=== PATIENT | female | born 1970 | race Caucasian/White ===

== ENCOUNTER 2019-06-16 05:25 | Observation (INO) | payer OTHER ==
[2019-06-16] MEDS ORDERED: ASPIRIN 81 MG CHEWABLE TABLET ONE (06:16)
[2019-06-16] MEDS ORDERED: METHYLPREDNISOLONE 125 MG INJ ONE (06:16)
[2019-06-16] MEDS ORDERED: FAMOTIDINE 20 MG/2 ML VIAL IV ONE (06:17)
[2019-06-16] MEDS ORDERED: ACETAMINOPHEN 325 MG TABLET ONE (06:17)
[2019-06-16] MEDS ORDERED: DIPHENHYDRAMINE 50 MG/ML VIAL ONE (06:17)
[2019-06-16 06:23] LABS: Absolute Lymphocytes (CBC) 1.7 K/uL (0.7-4.9); Basophils % 0.8 % (0-1.3); Hematocrit 42.5 % (36.0-45.0); Lymphocytes % 15.3 % (15.3-44.8); MPV 8.6 fL (7.6-11.3); Protime INR 0.96; RBC Red Blood Cell Count 4.52 M/uL (3.86-4.86)
--- NOTE | 2019-06-16 06:32 | EDPHYS ---
Physician Documentation [facility] Name: Venice James Age: 49 yrs Sex: Female : 1970 Arrival Date: 06/16/2019 Time: 05:26 Bed 8 Private MD: ED Physician Shailesh Owens HPI: 06/16 05:56 This 49 yrs old Female presents to ER via Ambulatory with complaints of Chest jaqui Pain. 05:56 The patient or guardian reports chest pain that is located primarily in the substernal jaqui area, anterior chest wall, right. Onset: just prior to arrival, this morning. The pain radiates to right back. Associated signs and symptoms: The patient has no apparent associated signs or symptoms. The chest pain is described as a heaviness, sharp. Modifying factors: The symptoms are alleviated by rest, the symptoms are aggravated by deep breath, movement. Severity of pain: At its worst the pain was mild moderate in the emergency department the pain is unchanged. Historical: - Allergies: 05:39 No Known Allergies; jd3 - Home Meds: 05:39 None [Active]; jd3 - PMHx: 05:39 None; jd3 - PSHx: 05:39 breast implants; jd3 - Immunization history:: Adult Immunizations up to date. - Social history:: Smoking status: Patient/guardian denies using tobacco. - Ebola Screening: : Patient negative for fever greater than or equal to 101.5 degrees Fahrenheit, and additional compatible Ebola Virus Disease symptoms. - Family history:: not pertinent. ROS: 05:56 Constitutional: Negative for fever, chills, and weight loss, Eyes: Negative for injury, jaqui pain, redness, and discharge, ENT: Negative for injury, pain, and discharge, Neck: Negative for injury, pain, and swelling, Respiratory: Negative for shortness of breath, cough, wheezing, and pleuritic chest pain, Abdomen/GI: Negative for abdominal pain, nausea, vomiting, diarrhea, and constipation, Back: Negative for injury and pain, : Negative for injury, bleeding, discharge, and swelling, MS/Extremity: Negative for injury and deformity, Skin: Negative for injury, rash, and discoloration, Neuro: Negative for headache, weakness, numbness, tingling, and seizure, Psych: Negative for depression, anxiety, suicide ideation, homicidal ideation, and hallucinations, Allergy/Immunology: Negative for hives, rash, and allergies, Endocrine: Negative for neck swelling, polydipsia, polyuria, polyphagia, and marked weight changes, Hematologic/Lymphatic: Negative for swollen nodes, abnormal bleeding, and unusual bruising. 05:56 Cardiovascular: Positive for chest pain. Exam: 05:56 Constitutional: This is a well developed, well nourished patient who is awake, alert, jaqui and in no acute distress. Eyes: Pupils equal round and reactive to light, extra-ocular motions intact. Lids and lashes normal. Conjunctiva and sclera are non-icteric and not injected. Cornea within normal limits. Periorbital areas with no swelling, redness, or edema. ENT: Nares patent. No nasal discharge, no septal abnormalities noted. Tympanic membranes are normal and external auditory canals are clear. Oropharynx with no redness, swelling, or masses, exudates, or evidence of obstruction, uvula midline. Mucous membranes moist. Neck: Trachea midline, no thyromegaly or masses palpated, and no cervical lymphadenopathy. Supple, full range of motion without nuchal rigidity, or vertebral point tenderness. No Meningismus. Cardiovascular: Regular rate and rhythm with a normal S1 and S2. No gallops, murmurs, or rubs. Normal PMI, no JVD. No pulse deficits. Respiratory: Lungs have equal breath sounds bilaterally, clear to auscultation and percussion. No rales, rhonchi or wheezes noted. No increased work of breathing, no retractions or nasal flaring. Abdomen/GI: Soft, non-tender, with normal bowel sounds. No distension or tympany. No guarding or rebound. No evidence of tenderness throughout. Back: No spinal tenderness. No costovertebral tenderness. Full range of motion. Female : Normal external genitalia. Skin: Warm, dry with normal turgor. Normal color with no rashes, no lesions, and no evidence of cellulitis. MS/ Extremity: Pulses equal, no cyanosis. Neurovascular intact. Full, normal range of motion. Neuro: Awake and alert, GCS 15, oriented to person, place, time, and situation. Cranial nerves II-XII grossly intact. Motor strength 5/5 in all extremities. Sensory grossly intact. Cerebellar exam normal. Normal gait. Psych: Awake, alert, with orientation to person, place and time. Behavior, mood, and affect are within normal limits. 05:56 Chest/axilla: Inspection: normal, Palpation: tenderness, that is mild, that is moderate, of the anterior aspect of right upper chest and right breast. 05:56 Cardiovascular: Rate: normal, Rhythm: regular, Pulses: Pulses are 4+ in bilateral radial, brachial, femoral, popliteal, posterior tibial and and dorsalis pedis arteries.. Heart sounds: normal, JVD: is not appreciated. 07:26 Musculoskeletal/extremity: Exam is negative for Extremities: all appear grossly normal, jaqui with no appreciated pain with palpation, DVT Exam: No signs of deep vein thrombosis. no pain, no swelling, no tenderness, negative Homans' sign noted on exam, no appreciated bluish discoloration, no erythema, no increased warmth. Vital Signs: 05:39 BP 133 / 83; Pulse 73; Resp 16 S; Temp 98.0(TE); Pulse Ox 99% on R/A; Weight 63.5 kg jd3 (R); Height 5 ft. 5 in. (165.10 cm) (R); Pain 5/10; 07:15 BP 124 / 76; Pulse 70; Resp 15; Pulse Ox 100% on R/A; Pain 2/10; hb 08:30 BP 110 / 73; Pulse 73; Resp 14; Pulse Ox 99% on R/A; Pain 0/10; hb 09:11 BP 106 / 64; Pulse 71; Resp 16; Pulse Ox 100% on R/A; Pain 0/10; hb 05:39 Body Mass Index 23.30 (63.50 kg, 165.10 cm) jd3 MDM: 05:31 Patient medically screened. [facility] 05:56 Data reviewed: vital signs, nurses notes, lab test result(s), EKG, radiologic studies, [facility] CT scan, plain films. 06/16 05:55 Order name: Basic Metabolic Panel; Complete Time: 07:24 [facility] 06/16 05:55 Order name: CBC with Diff; Complete Time: 07:24 [facility] 06/16 05:55 Order name: LFT's; Complete Time: 07:24 [facility] 06/16 05:55 Order name: Magnesium; Complete Time: 07:24 [facility] 06/16 05:55 Order name: NT PRO-BNP; Complete Time: 07:24 [facility] 06/16 05:55 Order name: PT-INR; Complete Time: 07:24 [facility] 06/16 05:55 Order name: Troponin (emerg Dept Use Only); Complete Time: 07:24 [facility] 06/16 05:55 Order name: Lipase; Complete Time: 07:24 [facility] 06/16 05:56 Order name: Urine Culture [facility] 06/16 06:34 Order name: Urine Dipstick--Ancillary (enter results) [facility] 06/16 06:34 Order name: Urine --Ancillary (enter results) [facility] 06/16 07:53 Order name: Basic Metabolic Panel EDMS 06/16 07:53 Order name: Basic Metabolic Panel EDMS 06/16 07:53 Order name: CBC with Automated Diff EDMS 06/16 05:55 Order name: EKG; Complete Time: 05:57 [facility] 06/16 05:56 Order name: CT Aorta for Dissection [facility] 06/16 07:53 Order name: CONS Physician Consult EDMT 06/16 07:53 Order name: Echo with Doppler EDMS 06/16 07:53 Order name: CBC with Automated Diff EDMS 06/16 07:53 Order name: Lipid Profile EDMS 06/16 07:53 Order name: Lipid Profile EDMS 06/16 07:53 Order name: Troponin I EDMS 06/16 07:53 Order name: Troponin I EDMS 06/16 07:53 Order name: Troponin I EDMS 06/16 05:55 Order name: Cardiac monitoring; Complete Time: 05:56 [facility] 06/16 05:55 Order name: EKG - Nurse/Tech; Complete Time: 05:56 [facility] 06/16 05:55 Order name: IV Saline Lock; Complete Time: 06:14 [facility] 06/16 05:55 Order name: Labs collected and sent; Complete Time: 06:14 [facility] 06/16 05:55 Order name: O2 Per Protocol; Complete Time: 05:56 [facility] 06/16 05:55 Order name: O2 Sat Monitoring; Complete Time: 05:56 [facility] 06/16 05:56 Order name: Urine Dipstick-Ancillary (obtain specimen); Complete Time: 06:31 [facility] 06/16 05:56 Order name: Urine Test (obtain specimen); Complete Time: 06:31 [facility] 06/16 07:53 Order name: EKG Electrocardiogram EDMT 06/16 07:53 Order name: EKG Electrocardiogram EDMS 06/16 07:56 Order name: Heart Healthy EDMT Administered Medications: 06:31 Drug: Aspirin 162 mg Route: PO; jd3 06:31 Drug: Benadryl 25 mg Route: IVP; Site: right antecubital; jd3 06:31 Drug: Pepcid 40 mg Route: IVP; Site: right antecubital; jd3 06:31 Drug: SOLU-Medrol 125 mg Route: IVP; Site: right antecubital; jd3 06:32 Drug: Tylenol 650 mg Route: PO; jd3 Disposition: 06/16/19 06:32 Hospitalization ordered by Maria C Batista for Observation. Preliminary diagnosis are Chest pain, unspecified - celiac artery stenosis, Dyspnea, Urticaria, Other ovarian cysts - right 3.9 cm with septation. - Bed requested for Telemetry/MedSurg (observation). - Status is Observation. eb - Condition is Stable. - Problem is new. - Symptoms have improved. UTI on Admission? No Signatures: Dispatcher [employer] [facility] Shailesh Owens MD MD cha Davies, Jonathon RN RN jAlyson Romero Corrections: (The following items were deleted from the chart) 07:20 05:57 Chest Single View+RAD.RAD.BRZ ordered. [facility] EDMT 07:56 07:53 Heart Healthy ordered. [facility] EDMT 08:05 06:32 Hospitalization Ordered by Maria C Batista MD for Observation. Preliminary jaqui diagnosis is Chest pain, unspecified; Dyspnea; Urticaria. Bed requested for Telemetry/MedSurg (observation). Status is Observation. Condition is Stable. Problem is new. Symptoms have improved. UTI on Admission? No. jaqui 09:02 08:05 06/16/2019 06:32 Hospitalization Ordered by Maria C Batista MD for Observation. eb Preliminary diagnosis is Chest pain, unspecified - celiac artery stenosis; Dyspnea; Urticaria; Other ovarian cysts - right 3.9 cm with septation. Bed requested for Telemetry/MedSurg (observation). Status is Observation. Condition is Stable. Problem is new. Symptoms have improved. UTI on Admission? No. jaqui 09:35 09:02 06/16/2019 06:32 Hospitalization Ordered by Maria C Baitsta MD for Observation. eb Preliminary diagnosis is Chest pain, unspecified - celiac artery stenosis; Dyspnea; Urticaria; Other ovarian cysts - right 3.9 cm with septation. Bed requested for Telemetry/MedSurg (observation). Status is Observation. Condition is Stable. Problem is new. Symptoms have improved. UTI on Admission? No. eb
--- NOTE | 2019-06-16 06:32 | ER ---
Nurse's Notes [facility] Name: Venice James Age: 49 yrs Sex: Female : 1970 Arrival Date: 06/16/2019 Time: 05:26 Bed 8 Private MD: Diagnosis: Chest pain, unspecified-celiac artery stenosis;Dyspnea;Urticaria;Other ovarian cysts-right 3.9 cm with septation Presentation: 06/16 05:36 Presenting complaint: Patient states: "I am having chest pain that started about an jd3 hour ago. it happens off an on for a month now. I have seen my primary doctor and she had me get an X-ray and labs done. I was also sent larry with acid reflux medication, but it isn't helping and they haven't called back about the results.". Transition of care: patient was not received from another setting of care. Onset of symptoms was June 16, 2019. Risk Assessment: Do you want to hurt yourself or someone else? Patient reports no desire to harm self or others. Initial Sepsis Screen: Does the patient meet any 2 criteria? No. Patient's initial sepsis screen is negative. Does the patient have a suspected source of infection? No. Patient's initial sepsis screen is negative. Care prior to arrival: None. 05:36 Method Of Arrival: Ambulatory jd3 05:36 Acuity: IRVIN 3 jd3 Historical: - Allergies: 05:39 No Known Allergies; jd3 - Home Meds: 05:39 None [Active]; jd3 - PMHx: 05:39 None; jd3 - PSHx: 05:39 breast implants; jd3 - Immunization history:: Adult Immunizations up to date. - Social history:: Smoking status: Patient/guardian denies using tobacco. - Ebola Screening: : Patient negative for fever greater than or equal to 101.5 degrees Fahrenheit, and additional compatible Ebola Virus Disease symptoms. - Family history:: not pertinent. Screenin:42 Abuse screen: Denies threats or abuse. Nutritional screening: No deficits noted. jd3 Tuberculosis screening: No symptoms or risk factors identified. Fall Risk Ambulatory Aid- None/Bed Rest/Nurse Assist (0 pts). Gait- Normal/Bed Rest/Wheelchair (0 pts) Mental Status- Oriented to own ability (0 pts). Total Saldana Fall Scale indicates No Risk (0-24 pts). Assessment: 05:40 General: Appears in no apparent distress. uncomfortable, Behavior is calm, cooperative, jd3 appropriate for age. Pain: Complains of pain in chest Pain radiates to back Quality of pain is described as pressure, radiating, Pain began about a month ago. Neuro: Level of Consciousness is awake, alert, obeys commands, Oriented to person, place, time, situation. Cardiovascular: Heart tones S1 S2 present Capillary refill < 3 seconds Patient's skin is warm and dry. Rhythm is regular. Respiratory: Reports shortness of breath at rest Airway is patent Respiratory effort is even, unlabored, Respiratory pattern is regular, symmetrical, Breath sounds are clear bilaterally. Denies cough. GI: No signs and/or symptoms were reported involving the gastrointestinal system. Patient currently denies nausea, vomiting. : No signs and/or symptoms were reported regarding the genitourinary system. EENT: No signs and/or symptoms were reported regarding the EENT system. Derm: Skin is intact, Skin is dry, Skin is normal, Skin temperature is warm. Musculoskeletal: Circulation, motion, and sensation intact. Range of motion: intact in all extremities. 07:15 Reassessment: Patient appears in no apparent distress at this time. Patient and/or hb family updated on plan of care and expected duration. Pain level reassessed. Patient is alert, oriented x 3, equal unlabored respirations, skin warm/dry/pink. 08:30 Reassessment: Patient appears in no apparent distress at this time. Patient and/or hb family updated on plan of care and expected duration. Pain level reassessed. Patient is alert, oriented x 3, equal unlabored respirations, skin warm/dry/pink. Patient denies pain at this time. Vital Signs: 05:39 BP 133 / 83; Pulse 73; Resp 16 S; Temp 98.0(TE); Pulse Ox 99% on R/A; Weight 63.5 kg jd3 (R); Height 5 ft. 5 in. (165.10 cm) (R); Pain 5/10; 07:15 BP 124 / 76; Pulse 70; Resp 15; Pulse Ox 100% on R/A; Pain 2/10; hb 08:30 BP 110 / 73; Pulse 73; Resp 14; Pulse Ox 99% on R/A; Pain 0/10; hb 09:11 BP 106 / 64; Pulse 71; Resp 16; Pulse Ox 100% on R/A; Pain 0/10; hb 05:39 Body Mass Index 23.30 (63.50 kg, 165.10 cm) jd3 ED Course: 05:26 Patient arrived in ED. cl3 05:28 Marco Bazan RN is Primary Nurse. jd3 05:31 Shailesh Owens MD is Attending Physician. jaqui 05:38 Triage completed. jd3 05:40 Arm band placed on. jd3 05:40 EKG completed in triage. Results shown to MD. jd3 05:42 Patient has correct armband on for positive identification. Placed in gown. Bed in low jd3 position. Call light in reach. Side rails up X 1. Adult w/ patient. monitor technician on. Pulse ox on. NIBP on. 05:42 Patient maintains SpO2 saturation greater than 95% on room air. jd3 06:02 Inserted saline lock: 20 gauge in right antecubital area, using aseptic technique. jd3 Blood collected. 06:30 Maria C Batista MD is Hospitalizing Provider. jaqui 06:52 Radiology exam delayed due to lab results not completed at this time. (BUN/Creatinine). kw1 07:21 CT completed. Patient tolerated procedure well. Patient moved back from CT. mw3 07:22 CT Aorta for Dissection In Process Unspecified. EDMS 09:12 No provider procedures requiring assistance completed. Patient admitted, IV remains in hb place. Administered Medications: 06:31 Drug: Aspirin 162 mg Route: PO; jd3 06:31 Drug: Benadryl 25 mg Route: IVP; Site: right antecubital; jd3 06:31 Drug: Pepcid 40 mg Route: IVP; Site: right antecubital; jd3 06:31 Drug: SOLU-Medrol 125 mg Route: IVP; Site: right antecubital; jd3 06:32 Drug: Tylenol 650 mg Route: PO; jd3 Outcome: 06:32 Decision to Hospitalize by Provider. jaqui 09:12 Admitted to Med/surg accompanied by tech, family with patient, via wheelchair, room hb 211, with chart, Report called to Cm CHAPARRO 09:12 Condition: stable 09:12 Instructed on the need for admit, Demonstrated understanding of instructions. 09:35 Patient left the ED. eb Signatures: Dispatcher [employer] Shailesh Mckoy MD MD cha Baxter, Heather RN Maroc Crandall RN RN jAnia Castro kw1 Alyson Ortiz Michelle 3 Gely Mooney 3
[2019-06-16 06:51] LABS: ALT/SGPT 25 U/L (12-78); AST/SGOT 16 U/L (15-37); Albumin 4.3 g/dL (3.4-5.0); Alkaline Phosphatase 102 U/L (45-117); BUN Blood Urea Nitrogen 11 mg/dL (7-18); Bicarbonate 28 mmol/L (21-32); Bilirubin Direct 0.1 mg/dL (0-0.2); Bilirubin Total 0.6 mg/dL (0.2-1.0); Glucose Level 80 mg/dL (74-106); Lipase 180 U/L (73-393); Magnesium 2.2 mg/dL (1.8-2.4); NT PRO-BNP 77 pg/mL (<125); Potassium 3.7 mmol/L (3.5-5.1); Protein, Total 7.7 g/dL (6.4-8.2); Sodium Level 138 mmol/L (136-145); Troponin (Emerg Dept Use Only) < 0.02 ng/mL (0.0-0.045)
--- NOTE | 2019-06-16 07:40 | RAD REPORT ---
EXAM DESCRIPTION: CT - Angio Aorta For Dissection - 06/16/2019 7:22 am CLINICAL HISTORY: . Chest /abd pain COMPARISON: None TECHNIQUE: Computed tomography angiography of the chest, abdomen pelvis were obtained. 100 cc Isovue 370 was administered intravenously. Coronal and sagittal reconstruction were performed. MIP 3D reconstruction was performed All CT scans are performed using dose optimization technique as appropriate and may include automated exposure control or mA/KV adjustment according to patient size. FINDINGS: An aortic dissection is not seen. An aortic aneurysm is not displayed. High-grade stenosis celiac artery. , SMA and ARELY are patent . A lung consolidation is not present. A pericardial effusion is not seen. A pleural effusion is not n oted. Fatty liver Spleen, pancreas adrenals kidneys demonstrate no significant abnormality. The appendix is normal. There no evidence diverticulitis. 3.9 centimeter right ovarian cyst containing a septation. No significant free fluid IMPRESSION: Negative for an aortic dissection. High-grade stenosis celiac artery 3.9 centimeter right ovarian cyst containing a septation. No significant free fluid. Follow up ultras ound in a couple months recommended to assess stability/resolution
[2019-06-16] MEDS ORDERED: ALPRAZOLAM 0.25 MG TABLET PO PRN (07:48)
[2019-06-16] MEDS ORDERED: ACETAMINOPHEN 500 MG TAB PO PRN (07:48)
[2019-06-16] MEDS ORDERED: MORPHINE 2 MG/ML SYR IV PRN (07:48)
[2019-06-16 08:57] LABS: Urine Blood NEGATIVE (NEG); Urine Glucose NEGATIVE (NEG); Urine Protein 1+ (NEG); Urine Specific Gravity 1.025 (1.005-1.030); Urine pH 5.5 (5.0-7.0)
[2019-06-16] MEDS: METOPROLOL TAR 25 MG TAB PO SCH ×2 (09:00→10:10)
[2019-06-16] MEDS ORDERED: ENOXAPARIN 40 MG/0.4 ML SQ SCH (09:00)
[2019-06-16] MEDS ORDERED: ASPIRIN EC 81 MG TAB PO SCH (09:00)
[2019-06-16 10:19] VITALS: BMI 23.3
[2019-06-16] MEDS ORDERED: NAPROXEN 250 MG TAB PO PRN (10:24)
--- NOTE | 2019-06-16 10:34 | P.DS ---
Admission Date: 06/16/19 Discharge Date: 06/16/19 Disposition: DC HOME/HOME HEALTH CARE Discharge Condition: GOOD - Problems (1) Chest pain at rest Current Visit: Yes Status: Acute Brief History of Present Illness: patient with recurrent chest pains icne 5 months admitted for today for similar symptoms . Hospital Course: on admission , patient chest pain continue to resolved and recur , initial EKG was unremarkable . as well as serial sets of cardiac enzymes . Cardiology eval with Dr Moe was done and felt to be non cardiac . She has been scheduled with cardiology for stress test as outpt Vital Signs/Physical Exam: Temp Pulse Resp BP Pulse Ox 98.0 F 91 H 18 128/74 99 06/16/19 09:35 06/16/19 09:35 06/16/19 09:35 06/16/19 09:35 06/16/19 09:35 General: Alert, In no apparent distress, Oriented x3 HEENT: Atraumatic, Normocephalic, PERRLA Neck: Supple, 2+ carotid pulse no bruit, JVD not distended Respiratory: Clear to auscultation bilaterally, Normal air movement Cardiovascular: No edema, Normal pulses, Regular rate/rhythm, Normal S1 S2 Gastrointestinal: Normal bowel sounds, Soft and benign Musculoskeletal: No clubbing, No swelling Neurological: Normal gait, Normal speech, Normal strength at 5/5 x4 extr Laboratory Data at Discharge: WBC 10.9 K/uL (4.3-10.9) 06/16/19 06:09 Hgb 14.8 g/dL (12.0-15.0) 06/16/19 06:09 Hct 42.5 % (36.0-45.0) 06/16/19 06:09 Plt Count 234 K/uL (152-406) 06/16/19 06:09 PT 11.3 SECONDS (9.5-12.5) 06/16/19 06:09 INR 0.96 06/16/19 06:09 Sodium 138 mmol/L (136-145) 06/16/19 06:09 Potassium 3.7 mmol/L (3.5-5.1) 06/16/19 06:09 BUN 11 mg/dL (7-18) 06/16/19 06:09 Creatinine 0.84 mg/dL (0.55-1.3) 06/16/19 06:09 Glucose 80 mg/dL (74-106) 06/16/19 06:09 Magnesium 2.2 mg/dL (1.8-2.4) 06/16/19 06:09 Total Bilirubin 0.6 mg/dL (0.2-1.0) 06/16/19 06:09 AST 16 U/L (15-37) 06/16/19 06:09 ALT 25 U/L (12-78) 06/16/19 06:09 Alkaline Phosphatase 102 U/L (45-117) 06/16/19 06:09 Lipase 180 U/L (73-393) 06/16/19 06:09 Laboratory Last Values WBC 10.9 K/uL (4.3-10.9) 06/16/19 06:09 RBC 4.52 M/uL (3.86-4.86) 06/16/19 06:09 Hgb 14.8 g/dL (12.0-15.0) 06/16/19 06:09 Hct 42.5 % (36.0-45.0) 06/16/19 06:09 MCV 94.0 fL (80-100) 06/16/19 06:09 MCH 32.7 pg (27.0-35.0) 06/16/19 06:09 MCHC 34.8 g/dL (32.0-36.0) 06/16/19 06:09 RDW 13.2 % (12.1-15.2) 06/16/19 06:09 Plt Count 234 K/uL (152-406) 06/16/19 06:09 MPV 8.6 fL (7.6-11.3) 06/16/19 06:09 Neutrophils % 76.1 % (41.7-73.7) H 06/16/19 06:09 Lymphocytes % 15.3 % (15.3-44.8) 06/16/19 06:09 Monocytes % 6.9 % (3.3-12.3) 06/16/19 06:09 Eosinophils % 0.9 % (0-4.4) 06/16/19 06:09 Basophils % 0.8 % (0-1.3) 06/16/19 06:09 Absolute Neutrophils 8.3 K/uL (1.8-8.0) H 06/16/19 06:09 Absolute Lymphocytes 1.7 K/uL (0.7-4.9) 06/16/19 06:09 Absolute Monocytes 0.8 K/uL (0.1-1.3) 06/16/19 06:09 Absolute Eosinophils 0.1 K/uL (0-0.5) 06/16/19 06:09 Absolute Basophils 0.1 K/uL (0-0.5) 06/16/19 06:09 PT 11.3 SECONDS (9.5-12.5) 06/16/19 06:09 INR 0.96 06/16/19 06:09 Sodium 138 mmol/L (136-145) 06/16/19 06:09 Potassium 3.7 mmol/L (3.5-5.1) 06/16/19 06:09 Chloride 104 mmol/L (98-107) 06/16/19 06:09 Carbon Dioxide 28 mmol/L (21-32) 06/16/19 06:09 BUN 11 mg/dL (7-18) 06/16/19 06:09 Creatinine 0.84 mg/dL (0.55-1.3) 06/16/19 06:09 Estimated GFR 73 mL/min (=/>90) L 06/16/19 06:09 Glucose 80 mg/dL (74-106) 06/16/19 06:09 Calcium 8.8 mg/dL (8.5-10.1) 06/16/19 06:09 Magnesium 2.2 mg/dL (1.8-2.4) 06/16/19 06:09 Total Bilirubin 0.6 mg/dL (0.2-1.0) 06/16/19 06:09 Direct Bilirubin 0.1 mg/dL (0-0.2) 06/16/19 06:09 AST 16 U/L (15-37) 06/16/19 06:09 ALT 25 U/L (12-78) 06/16/19 06:09 Alkaline Phosphatase 102 U/L (45-117) 06/16/19 06:09 Rapid Troponin I < 0.02 ng/mL (0.0-0.045) 06/16/19 06:09 NT-Pro-B Natriuret Pep 77 pg/mL (<125) 06/16/19 06:09 Serum Total Protein 7.7 g/dL (6.4-8.2) 06/16/19 06:09 Albumin 4.3 g/dL (3.4-5.0) 06/16/19 06:09 Globulin 3.4 g/dL (2.3-3.5) 06/16/19 06:09 Albumin/Globulin Ratio 1.3 (1.1-1.8) 06/16/19 06:09 Lipase 180 U/L (73-393) 06/16/19 06:09 Urine pH 5.5 (5.0-7.0) 06/16/19 06:34 Ur Specific [place] 1.025 (1.005-1.030) 06/16/19 06:34 Urine Ketones 1+ (NEG) H 06/16/19 06:34 Urine Blood Negative (NEG) 06/16/19 06:34 Urine Nitrite Negative (NEG) 06/16/19 06:34 Ur Leukocyte Esterase 1+ (NEG) H 06/16/19 06:34 Urine Glucose Negative (NEG) 06/16/19 06:34 Urine Total Protein 1+ (NEG) H 06/16/19 06:34 Urine Test Neg (NEG) 06/16/19 06:34 Home Medications: Lisdexamfetamine Dimesylate [Vyvanse] 40 mg PO DAILY 04/25/17 Naproxen [Naprosyn*] 250 mg PO TID PRN #10 tab 06/16/19 Pantoprazole [Protonix Tab*] 40 mg PO DAILY 06/16/19 ZOLMitriptan [Zolmitriptan] 5 mg PO PRN PRN 06/16/19 New Medications: Naproxen [Naprosyn*] 250 mg PO TID PRN #10 tab PRN Reason: Pain Scale 5-7 (Moderate) Patient Discharge Instructions: follow plan for stress test on Tuesday with Dr Moe Diet: Regular Activity: Ad angeline (dc later today) Followup: Nic Moe MD [ACTIVE - CAN ADMIT] - Time spent managing pt's care (in minutes): 35
[2019-06-16] MEDS ORDERED: NITROGLYCERIN 0.1 MG/HR (2.5 MG) PATCH TD SCH (11:00)
[2019-06-16] MEDS: FAMOTIDINE 20 MG TAB PO SCH ×2 (11:05→21:10)
[2019-06-16 11:53] LABS: HDL Cholesterol 100 mg/dL (40-60); LDL Cholesterol, Calculated 48 (<130); Troponin I < 0.02 ng/mL (0.0-0.045)
--- NOTE | 2019-06-16 14:38 | CON ---
Chief Complaint: Chest pain. History Of Present Illness: Mrs. James has had chest pain off and on for 5 months. The pain does not seem to be triggered by activity, body position, meals. It occurred at all times a day and her worst episode was this morning, it occurred at about 4:30. It lasted about an hour and a half. The pain is not accompanied by pleurisy, cough, nausea, vomiting, sweating. Since being here, she has ayon d a CT angio of the chest and it indicates she has a fatty liver and that she has a celiac artery damaso nosis. The patient does not use tobacco. She does not use alcohol or illegal drugs. Her home medic ations are a stimulant drug and some multivitamins. She is 2, para 2. She has had a hystere ctomy without oophorectomy. Allergies: SHE REPORTS ALLERGY TO LATEX. NO MEDICINE ALLERGIES. Past Medical History: No history of myocardial infarction stroke. No history of diabetes, hypertens ion, dyslipidemia. Social History: She uses no tobacco. Rare alcohol. No illegal drugs. Physical Examination: Vital Signs: She is 5 feet 5 inches, 63 kg, blood pressure 133/83, temperature 98.0. HEENT: Normal. Lungs: Clear. Heart: Normal. Abdomen: Soft. Extremities: Normal. Normal pulses. No cyanosis, clubbing, or edema. Diagnostic Studies: EKGs within normal limits. The significant feature of her chest pain is that it is almost always accompanied by some swelling in the throat and itchiness and itchiness of her right upper lip, sometimes other spots on her face get red and swollen and itchy and then it goes away slo wly. Impression: This is an unusual form of urticaria. Of course, the celiac artery stenosis needs to be investigated at some point. An angiogram would be preferable as the method to see if it is a true f inding in a patient without any other evidence of atherosclerosis anywhere. It is a little bit hard to believe she has an isolated celiac artery stenosis, and if so, it would not be the likely cause of her symptoms. In any event that could be done as an outpatient. She has been given methylprednisol one and will probably relieve the allergic urticaria type reaction she is having. At this point, I t hink she is stable enough to be discharged and could follow up as an outpatient to do a stress test a nd discuss another examination of the celiac artery. CATHY/SMITH Voice ID: [id number] Report ID: [id number]
[2019-06-16 20:04] VITALS: O2SAT 97
[2019-06-16 21:00] VITALS: BP 119/71; TEMP 97.5
--- NOTE | 2019-06-17 06:07 | EKG ---
Test Date: 2019-06-16 Test Time: 05:35:52 Sponsorship Coordinator: SERGIO MEASUREMENT RESULTS: Intervals: Rate: 71 MT: 96 QRSD: 96 QT: 412 QTc: 447 [place]: P: 36 MT: 96 QRS: 47 T: 56 INTERPRETIVE STATEMENTS: Sinus rhythm with short MT Incomplete right bundle branch block Borderline ECG No previous ECG available for comparison Electronically Signed On 06-17-19 06:07:06 TECHNICAL SUPPORT TECHNICIAN by Nic Moe
--- NOTE | 2019-06-17 10:11 | EKG ---
Test Date: 2019-06-16 Test Time: 21:29:01 Grinder Set Up Operator Universal: RT Castro MEASUREMENT RESULTS: Intervals: Rate: 62 [place]: 94 QRSD: 90 QT: 446 QTc: 452 [place]: P: 42 [place]: 94 QRS: 60 T: 64 INTERPRETIVE STATEMENTS: Sinus rhythm with short [place] Otherwise normal ECG Compared to ECG 06/16/2019 19:45:30 No significant changes Electronically Signed On 06-17-19 10:10:32 COST RECOVERY TECHNICIAN by Nic Moe
--- NOTE | 2019-06-17 10:11 | EKG ---
Test Date: 2019-06-16 Test Time: 19:45:30 Instrument Room Technician: LEONEL MEASUREMENT RESULTS: Intervals: Rate: 65 [place]: 96 QRSD: 94 QT: 426 QTc: 443 [place]: P: 33 AR: 96 QRS: 49 T: 54 INTERPRETIVE STATEMENTS: Sinus rhythm with short [place] Otherwise normal ECG Compared to ECG 06/16/2019 05:35:52 Incomplete right bundle-branch block no longer present Electronically Signed On 06-17-19 10:10:35 MEDICAL RECORD CONSULTANT by Nic Moe
--- NOTE | 2019-06-18 09:09 | P.HP ---
Certification for Inpatient Patient admitted to: Observation With expected LOS: <2 Midnights Patient will require the following post-hospital care: None Practitioner: I am a practitioner with admitting privileges, knowledge of patient current condition, hospital course, and medical plan of care. Services: Services provided to patient in accordance with Admission requirements found in Title 42 Section 412.3 of the Code of Federal Regulations Patient History Date of Service: 06/16/19 Reason for admission: Chest pain rule out acute coronary syndrome History of Present Illness: Patient is a 49-year-old female came to the hospital with chest discomfort. Pain was mainly in the sternal region. She has a family history of coronary artery disease in both her mother and father. She had a EKG and troponins which were negative. Patient did have a CT for aortic dissection which revealed so celiac artery atherosclerosis. This is concerning for diffuse atherosclerotic process although this was not seen on the dissection study. Patient will be admitted to the hospital to be ruled out for acute coronary syndrome. Allergies latex Adverse Reaction (Verified 04/28/17 07:10) Itching Home Medications: Lisdexamfetamine Dimesylate [Vyvanse] 40 mg PO DAILY 04/25/17 Naproxen [Naprosyn*] 250 mg PO TID PRN #10 tab 06/16/19 Pantoprazole [Protonix Tab*] 40 mg PO DAILY 06/16/19 ZOLMitriptan [Zolmitriptan] 5 mg PO PRN PRN 06/16/19 - Past Medical/Surgical History Diabetic: No -: ADD -: Partial hysterectomy -: breast implants, quyen - Family History Father Medical History: Heart disease Notes: Congestive Heart Failure Mother Medical History: Heart disease, Cancer Notes: Congestive Heart Failure - Social History Smoking Status: Never smoker Alcohol use: Yes CD- Drugs: No Caffeine use: Yes Place of Residence: Home Review of Systems 10-point ROS is otherwise unremarkable Physical Examination - Vital Signs Temperature: 97.5 F Blood Pressure: 119/71 Pulse: 66 Respirations: 18 Pulse Ox (%): 96 - Physical Exam General: Alert, In no apparent distress, Oriented x3 HEENT: Atraumatic, PERRLA, Mucous membr. moist/pink, EOMI, Sclerae nonicteric Neck: Supple, 2+ carotid pulse no bruit, No LAD, Without JVD or thyroid abnormality Respiratory: Clear to auscultation bilaterally, Normal air movement Cardiovascular: Regular rate/rhythm, Normal S1 S2, No murmurs Gastrointestinal: Normal bowel sounds, Soft and benign, Non-distended, No tenderness Musculoskeletal: No clubbing, No swelling, No tenderness Integumentary: No rashes Neurological: Normal gait, Normal speech, Normal strength at 5/5 x4 extr, Normal tone, Sensation intact, Cranial nerves 3-12 intact, Normal affect Lymphatics: No axilla or inguinal lymphadenopathy Assessment & Plan - Problems (Diagnosis) (1) Chest pain, rule out acute myocardial infarction Status: Acute (2) Celiac artery atherosclerosis Status: Acute - Plan 1. Serial troponins and EKG 2. Cardiology consultation 3. Echocardiogram and stress test as an outpatient on Tuesday per Cardiology 4. Anti-platelet therapy, anti coagulation, beta-alex, statin, and O2 as needed 5. IV morphine for pain 6. Nitro p.r.n. 7. Patient will need angiogram to further evaluate celiac artery atherosclerotic process. Continue anti-platelet therapy and statin therapy. Discharge Plan: Home Plan to discharge in: 24 Hours - Advance Directives Does patient have a Living Will: No Does patient have a Durable POA for Healthcare: Yes - Code Status/Comfort Care Code Status Assessed: Yes Code Status: Full Code Critical Care: No Time Spent Managing PTS Care (In Minutes): 45
== END 2019-06-16 22:47 | disposition home or self-care (01) ==
LOC: ER 05:25 → ERHOLD 07:49 → 2ND 09:11
PROVIDERS: ADMIT Hospitalist; ATTEND Hospitalist
DX: R07.9 Chest pain, unspecified (principal); I77.4 Celiac artery compression syndrome; Z82.49 Family history of ischemic heart disease and other diseases of the circulatory system; Z91.040 Latex allergy status
CPT/HCPCS: 93005 ×3; 87088; 85025; 87086; 80048; 36415; 83735; 81025; 85610; 80061; 80076; 81003; 84484 ×3; 83690; 83880; 71275; 74175; 96375; 96374; 99285; Q9967; J1200; J1650; J2930; G0378 ×2